=== PATIENT | female | born 1970 | race Two or more races ===

== ENCOUNTER 2024-11-21 10:23 | Emergency (ER) | payer MEDICAID, OTHER ==
[~2024-11-21] VITALS: Ht 175.3 cm; Wt 8.9 kg
--- NOTE | 2024-11-21 11:03 | ED.PDOC ---
History of Present Illness(SKN HPI Comments HPI: 54 y/o F, with no prior medical history presents to the ED for CC of wound check. Patient states, she has a chronic non-healing right ankle wound [id number] that has recently become inflamed, discolored, and is draining purulent fluid x5days. Patient reports, that she did receive antibiotic medications [id number] ago when wound first appeared then received another dosage [id number] later however, wound has yet to heal. Patient relays, using topical Abx to try and alleviate symptoms however, denies any relief. Patient has noted discoloration and inflammation to her right ankle. Patient denies pain with ambulation, fever, chills, weakness, nausea, or vomiting. No other symptoms or modifying factors are present at this time. Initial Vitals BP: HR: RR: O2 Sat: Temp: Past Medical history: DENIES ANY Past Surgical history: TUBAL LIGATION Medications: DENIES ANY Social History: Denies smoking, ETOH, and drug use. Allergies: NKDA Fam Right above medial malleoli chronic wound/pain HPI: Poor Historian. REVIEW OF SYSTEMS: CONSTITUTIONAL: Denies acute: fever, diaphoresis, chills, generalized weakness. HEAD: Denies acute: headache, photophobia Eyes: Denies acute: Double vision, vision loss, eye pain, eye discharge. EARS: Denies acute: tinnitus, hearing loss, ear discharge, ear pain, THROAT: Denies acute: sore throat, swelling, difficulty swallowing , pain with swallowing, change in voice. NECK: Denies acute: neck pain, neck swelling, stiff neck. HEART: Denies acute : chest pain, palpitations, LUNGS: Denies acute: SOB, wheezing, cough, hemoptysis ABDOMEN: Denies acute: abdominal pain, Nausea, Vomiting, diarrhea, melena , hematemesis, hematochezia SKIN: Denies acute: rash, redness, lesions, itchiness. EXTREMITIES: Denies acute: calf pain, numbness, tingling, weakness, denies pain in extremity. Denies acute: Low back pain. Neuro: Denies acute: focal neurological deficit, motor or sensory focal neurological d eficit, tremors, seizure like activity, confusion, dizziness, change in mental status, loss of bowel or bladder function, cauda equina like symptoms. : Denies acute: dysuria, hematuria, flank pain, increase in urinary frequency. PSYCH: Denies acute: hallucination, suicidal ideation, homicidal ideation. FEMALE: Denies acute: abnormal vaginal bleeding, foul odor, unusual discharge. PHYSICAL EXAM: General: --------acute distress, awake and alert. Head: normocephalic, atraumatic. Neck: supple, trachea is midline, no swelling. Throat: Normal phonation. Eyes:, no erythema, no purulent discharge, no proptosis, no icterus. Heart: regular rate, regular rhythm, no significant murmur appreciated. Lungs: no apparent respiratory distress, Able to speak in full sentences. No wheezing, no rhonchi, no crackles. No stridors Clear to auscultation bilaterally. Abdomen: non tender to palpation, non distended, soft, no guarding, no rebound, + bowel sounds. Neuro: Awake, Alert, oriented to name, self, situation, follows commands GCS=15. Speech is normal. Skin: no petechia, no purpura, no cyanosis, non-pale, not jaundice. Evaluation of the affected right lower extremity: No deformity, no calf tenderness to palpation, patient is neurovascularly intact in the affected extremity. Pedal pulses palpable. Sensory and motor are present. Noted pitting edema 2/4. Noted wound with some ulceration proximally 5 cm in diameter. Some slight tenderness to palpation with the associated erythema around the wound. Makes eye contact. moves all four extremities. Face: no apparent facial droop. Ambulating in the ED independently. Pedal pulses are palpable. ED COURSE: DISCLAIMER: This medical document was created using an electronic medical record system with voice recognition software and computerized dictation system. Although this document has been carefully reviewed, there might still be some phonetic and typographical errors. Occasional wrong-word or "sound-alike" substitutions may have occurred due to the inherent limitations of voice recognition software. The se areas are purely typographical due to imperfections of the software programs and do not reflect any compromise in the patient's medical care. Please read the chart carefully and recognize, using context, where these substitutions have occurred. Chief Complaint: Wound Check Time Seen by MD: 11:00 History of Present Illness: Nurses Notes, Medications, Allergies Allergies: Coded Allergies: NO KNOWN ALLERGIES (Unverified , 11/21/24) Home Meds Active Scripts Clindamycin Hcl (Clindamycin Hcl) 300 Mg Cap, 1 CAP PO TID for 7 Days, #21 CAP Prov:BHUMI HOFF DO 11/21/24 Information Source: Patient Mode of Arrival: Ambulatory Severity: Moderate Timing: Months Duration: Since onset Location: Other (right ankle) Mechanism: Spontaneous Onset Developed: Generalized erythema, Pruritus Object: None Condition of Object: None Wound Type: Abrasion Immunization Status of Animal: NA Tetanus: Unknown History of: None Associated Signs and Symptoms: Redness, Pus Was a procedure done? Was a procedure done?: No Differential Diagnosis (INTG) Differential Diagnosis: Abrasion, Cellulitis, Contusion, Fracture, Hematoma Differential Diagnosis: Gangrene, Osteomyelitis Differential Diagnosis: Cellulitis, Fracture, Hematoma, Neurovascular Injury Abscess: Abscess, Bacteremia, Gas Gangrene Differential Diagnosis: Open Fracture, Osteomyelitis X-Ray, Labs, Meds, VS Vital Signs Date Time Temp Pulse Resp B/P (MAP) Pulse Ox O2 Delivery O2 Flow Rate FiO2 11/21/24 15:52 98.7 53 16 149/69 (95) 100 98.7 11/21/24 14:01 98.7 54 17 156/68 (97) 100 98.7 11/21/24 14:01 54 17 100 Room Air 11/21/24 12:32 57 18 164/85 (111) 98 11/21/24 10:24 97.5 84 18 148/80 97 97.5 Lab Test 11/21/24 11:02 Range/Units White Blood Count 7.2 4.4-10.8 10^3/uL Red Blood Count 4.32 4.0-5.20 10^6/uL Hemoglobin 12.2 12.2-16.2 g/dL Hematocrit 36.4 36.0-46.0 % Mean Corpuscular Volume 84.4 80.0-100.0 fL Mean Corpuscular Hemoglobin 28.2 28.0-32.0 pg Mean Corpuscular Hemoglobin Concent 33.3 32.0-36.0 g/dL Red Cell Distribution Width 14.8 H 11.8-14.3 % Platelet Count 264 140-450 10^3/uL Mean Platelet Volume 8.3 6.9-10.8 fL Neutrophils (%) (Auto) 59.3 37.0-80.0 % Lymphocytes (%) (Auto) 30.8 10.0-50.0 % Monocytes (%) (Auto) 6.7 0.0-12.0 % Eosinophils (%) (Auto) 2.9 0.0-7.0 % Basophils (%) (Auto) 0.3 0.0-2.0 % Neutrophils # (Auto) 4.3 1.6-8.6 10 ^3/uL Lymphocytes # (Auto) 2.2 0.4-5.4 10 ^3/uL Monocytes # (Auto) 0.5 0-1.3 10 ^3/uL Eosinophils # (Auto) 0.2 0-0.8 10 ^3/uL Basophils # (Auto) 0 0-0.2 10 ^3/uL Nucleated Red Blood Cells 0.0 % Erythrocyte Sedimentation Rate 36 H 0-20 mm/hr Sodium Level 139 136-145 mmol/L Potassium Level 3.9 3.5-5.1 mmol/L Chloride Level 106 98-107 mmol/L Carbon Dioxide Level 26 20-31 mmol/L Anion Gap 7 5-15 Blood Urea Nitrogen 7 L 9-23 mg/dL Creatinine 0.54 L 0.550-1.02 mg/dL Glomerular Filtration Rate Calc 110 >90 mL/min BUN/Creatinine Ratio 13.0 10.0-20.0 Serum Glucose 111 H 74-106 mg/dL Lactic Acid Level 1.6 0.4-2.0 mmol/L Calcium Level 9.2 8.7-10.4 mg/dL C-Reactive Protein High Sensitivity 1.67 H <1.0 mg/dL [place] [address] Ph: [phone] DIAGNOSTIC IMAGING Diagnostic Imaging Report : [id number] Signed PATIENT: BENOIT FAMACCT: [id number] UNIT: [id number] : 1970 LOC: ER ROOM / BED: / AGE / SEX: 54 / F ADM STATUS: REG ER SERVICE 1325 ORDERING PHYSICIAN: BHUMI HOFF DO PROCEDURE(s): RLDVT - RT Lower DVT REASON: pain ORDER NUMBER(s): [id number], ACCESSION NUMBER(s): [id number] RIGHT LOWER EXTREMITY VENOUS DUPLEX REASON FOR EXAMINATION: Right lower extremity pain and edema. COMPARISON: None TECHNIQUE: Using real-time freeze-frame technique with a high-frequency transducer, multiple longitudinal and transverse sections were obtained. Simultaneous color flow and spectral Doppler imaging was performed. FINDINGS: There is good visualization of the deep venous system with no intraluminal filling defects identified. Normal venous compressibility is seen and there is flow augmentation. Color flow Doppler imaging is unremarkable. There is a Lutz's cyst in the right popliteal fossa measuring approximately 2.9 x 1.1 x 2.7 cm. IMPRESSION: NO EVIDENCE OF DEEP VENOUS THROMBOSIS. ATED BY: PAL FIERRO MD DICTATED DATE/TIME: 11/21/241404 SIGNED BY: PAL FIERRO MD SIGNED DATE/TIME: 11/21/241404 CC: Time of 1ST Reevaluation: 11:30 Reevaluation 1ST: Unchanged Patient Education/Counseling: Diagnosis, Treatment Family Education/Counseling: No Family Present Comments MDM: patient presented with the above HPI.--foot infection----workup was initiated. patient was found with the above mentioned diagnosis. the following medications were ordered: please refer to order lists of meds and tests obtained by myself Dr. Hoff. Patient ED course and VS have been stabilized. Patient has been reassessed in the ED and remained in a stable condition. Pertinent incidental findings were discussed with the patient and/or family. Patient/family voices understanding and is agreeable with plan. Patient has been observed in the ED adequate length of time to insure improvement/stability. Escalation of care considered: Consideration of escalation to observation or admission Antibiotics initiated. Patient was ADMITTED to the medicine team for further evaluation and treatment of their presentation. All the reports of any imaging studies that were ordered by myself were reviewed by myself. SEPSIS Sepsis Screen Date sepsis recognized/suspect: Nov 21, 2024 Time Sepsis recognized/suspect: 1024 Recent Procedure: No On Antibiotic Therapy: No Respiratory Rate >20: No Heart Rate >90: No Temp<36 C (96.8 F) or >38.3 C: No SBP <90 or MAP <65 mmHG: No New Acute Mental Status Change: No Is the patient on CPAP, BIPAP,: No Physician Orders Rt Lower Dvt (11/21/24 13:25) Vital Signs Date Time Temp Pulse Resp B/P (MAP) Pulse Ox O2 Delivery O2 Flow Rate FiO2 11/21/24 15:52 98.7 53 16 149/69 (95) 100 98.7 11/21/24 14:01 98.7 54 17 156/68 (97) 100 98.7 11/21/24 14:01 54 17 100 Room Air 11/21/24 12:32 57 18 164/85 (111) 98 11/21/24 10:24 97.5 84 18 148/80 97 97.5 Laboratory Tests Test 11/21/24 11:02 Lactic Acid Level 1.6 mmol/L (0.4-2.0) White Blood Count 7.2 10^3/uL (4.4-10.8) Departure 1 Departure Time of Disposition: 13:24 Impression: Primary Impression: Cellulitis of right ankle Disposition: 01 HOME / SELF CARE / HOMELESS Condition: Stable Additional Instructions: Additional instructions: Please read all instructions provided in this packet carefully. You MUST follow-up with your primary care/family doctor in 1 to 2 days. If you are unable to see your primary care/family doctor, please return to our emergency room for re-assessment and re-evaluation in 1 to 2 days. Return to the emergency room here in our facility or to the nearest ER [facility] if your symptoms change or worsen. Adequate fluid hydration. Although you have been discharged from the Emergency Department, this does not mean that you have a "clean bill of health". No definitive diagnosis for your s ymptoms has been made today. It is possible that you are in the process of developing a serious illness. This is why you must return to the ED without fail if any new or worsening symptoms develop. Below is a copy of your radiological report for follow up: [address] [address] Ph: [phone] DIAGNOSTIC IMAGING Diagnostic Imaging Report : [id number] Signed PATIENT: BENOIT FAM ACCT: [id number] UNIT: [id number] : 1970 LOC: ER ROOM / BED: / AGE / SEX: 54 / F ADM STATUS: REG ER SERVICE 1325 ORDERING PHYSICIAN: BHUMI HOFF DO PROCEDURE(s): RLDVT - RT Lower DVT REASON: pain ORDER NUMBER(s): [id number], ACCESSION NUMBER(s): [id number] RIGHT LOWER EXTREMITY VENOUS DUPLEX REASON FOR EXAMINATION: Right lower extremity pain and edema. COMPARISON: None TECHNIQUE: Using real-time freeze-frame technique with a high-frequency transducer, multiple longitudinal and transverse sections were obtained. Simultaneous color flow and spectral Doppler imaging was performed. FINDINGS: There is good visualization of the deep venous system with no intraluminal filling defects identified. Normal venous compressibility is seen and there is flow augmentation. Color flow Doppler imaging is unremarkable. There is a Lutz's cyst in the right popliteal fossa measuring approximately 2.9 x 1.1 x 2.7 cm. IMPRESSION: NO EVIDENCE OF DEEP VENOUS THROMBOSIS. ATED BY: PAL FIERRO MD DICTATED DATE/TIME: 11/21/24 1405 SIGNED BY: PAL FIERRO MD SIGNED DATE/TIME: 11/21/24 1405 CC: e-Prescriptions Clindamycin Hcl (Clindamycin Hcl) 300 Mg Cap 1 CAP PO TID for 7 Days, #21 CAP Prov: BHUMI HOFF DO 11/21/24 Discharged With: Self Critical Care Note Critical Care Time?: No I personally scribed for BHUMI HOFF DO ([email or web address]) on 11/21/24 at 11:03. Electronically submitted by Skylar Anguiano ([email or web address]). I personally scribed for BHUMI HOFF DO ([email or web address]) on 11/21/24 at 11:20. Electronically submitted by Skylar Anguiano ([email or web address]). I personally scribed for BHUMI HOFF DO ([email or web address]) on 11/21/24 at 11:29. Electronically submitted by Skylar Anguiano ([email or web address]). I personally scribed for BHUMI HOFF DO ([email or web address]) on 11/21/24 at 14:25. Electronically submitted by Skylar Anguiano ([email or web address]). BHUMI HOFF DO Nov 21, 2024 11:03
[2024-11-21 11:26] LABS: Chloride 106 mmol/L (98-107); Potassium 3.9 mmol/L (3.5-5.1); Sodium 139 mmol/L (136-145)
[2024-11-21 11:27] LABS: Anion Gap 7 (5-15); Calcium 9.2 mg/dL (8.7-10.4); Carbon Dioxide 26 mmol/L (20-31)
[2024-11-21 11:29] LABS: Hematocrit 36.4 % (36.0-46.0); Hemoglobin 12.2 g/dL (12.2-16.2); Mean Corpuscular Hemoglobin 28.2 pg (28.0-32.0); Mean Corpuscular Volume 84.4 fL (80.0-100.0); Nucleated Red Blood Cells % 0.0 %
[2024-11-21 11:32] LABS: BUN/Creatinine Ratio 13.0 (10.0-20.0)
[2024-11-21 11:33] LABS: Blood Urea Nitrogen 7 mg/dL (9-23); Glucose 111 mg/dL (74-106)
--- NOTE | 2024-11-21 14:07 | DVH ---
RIGHT LOWER EXTREMITY VENOUS DUPLEX REASON FOR EXAMINATION: Right lower extremity pain and edema. COMPARISON: None TECHNIQUE: Using real-time freeze-frame technique with a high-frequency transducer, multiple longitu dinal and transverse sections were obtained. Simultaneous color flow and spectral Doppler imaging wa s performed. FINDINGS: There is good visualization of the deep venous system with no intraluminal filling defects identified. Normal venous compressibility is seen and there is flow augmentation. Color flow Doppler imaging is unremarkable. There is a Lutz's cyst in the right popliteal fossa measuring approximately 2.9 x 1.1 x 2.7 cm. IMPRESSION: NO EVIDENCE OF DEEP VENOUS THROMBOSIS.
[2024-11-21] MEDS: CLINDAMYCIN 900MG IV 50 ML IV ONE (14:19)
[2024-11-21] MEDS ORDERED: CLIN1CAP70 PO (14:30)
[2024-11-21 15:52] VITALS: BP 149/69; PULSE 53; RESP 16; TEMP 98.7; O2SAT 100
== END 2024-11-21 15:54 | disposition home or self-care (01) ==
LOC: ER 10:23
DX: L03.115 Cellulitis of right lower limb (principal); Z98.51 Tubal ligation status; Z79.899 Other long term (current) drug therapy
CPT/HCPCS: 36415; 80048; 83605; 85025; 85652; 86141; 93971; 96365; 96366; 99285; J3490

== ENCOUNTER 2024-11-30 07:57 | Day surgery (SDC) | payer MEDICAID ==
[2024-11-28 10:32] LABS: Hematocrit 37.3 % (36.0-46.0); Hemoglobin 12.7 g/dL (12.2-16.2); Mean Corpuscular Hemoglobin 28.8 pg (28.0-32.0); Mean Corpuscular Volume 84.7 fL (80.0-100.0); Nucleated Red Blood Cells % 0.1 %
[2024-11-28 10:41] LABS: Urine Protein, UAD Negative (Negative)
[2024-11-28 10:47] LABS: INR 0.96 (0.9-1.15); Partial Thromboplastin Time 30.8 SEC (24.5-34.5); Prothrombin Time 10.2 sec (9.3-11.8)
[2024-11-28 11:20] LABS: Alanine Aminotransferase 36 U/L (7-40); Albumin 4.5 g/dL (3.2-4.8); Alkaline Phosphatase 102 U/L (46-116); Anion Gap 9 (5-15); BUN/Creatinine Ratio 15.0 (10.0-20.0); Calcium 9.1 mg/dL (8.7-10.4); Carbon Dioxide 28 mmol/L (20-31); Chloride 106 mmol/L (98-107); Potassium 4.2 mmol/L (3.5-5.1); Sodium 143 mmol/L (136-145); Total Protein 7.6 g/dL (5.7-8.2)
[2024-11-28 11:21] LABS: Bilirubin, Total 0.3 mg/dL (0.2-1.0)
[2024-11-28 11:34] LABS: Blood Urea Nitrogen 9 mg/dL (9-23); Glucose 117 mg/dL (74-106)
[~2024-11-30] VITALS: Ht 144.8 cm; Wt 86.2 kg
[2024-11-30] MEDS ORDERED: fentaNYL CITRATE 100 MCG/2 ML VL ONE (08:46)
[2024-11-30] MEDS ORDERED: PROPOFOL 10 MG/ML 20 ML IV ONE (08:47)
[2024-11-30 09:02] VITALS: PULSE 54; RESP 14; TEMP 97.4; O2SAT 95
--- NOTE | 2024-11-30 09:02 | DVHHP2 ---
GI H&P Pre-Op Assessment Date: 11/30/24 Chief complaint: colon cancer screening HPI: per clinic note Past medical history: per clinic note Past surgical history: per clinic note Family history: per clinic note Physical exam: General: NAD, AAOX3 HEENT: PERRL, no scleral icterus, normal hearing, gums without lesions or bleeding, oropharynx clear without erythema or exudate. Neck: Supple without enlargement of the thyroid, or lymphadenopathy. Chest: Normal size and shape, no tenderness, lung [place] clear to auscultation and percussion, nonlabored breathing. Heart: RRR, no murmur Abdomen: non-distended, no tenderness to palpation, +BS, no hepatosplenomegaly Extremities: no edema Neurological: CN II-XII intact, sensation intact in all extremities, 5+ strength in all extremities Skin: No rashes, No jaundice Assessment: - colon cancer screening Plan: - Colonoscopy - Risks (bleeding, infection, perforation, reaction to sedation medications and cardiopulmonary arrest) and benefit of the procedure were explained to patient. Patient agrees to undergo the procedure. CECILE ARANGO MD Nov 30, 2024 09:02
--- NOTE | 2024-11-30 09:03 | DVHOP2 ---
Operative Report DATE OF OPERATION: 11/30/24 PROCEDURE: Colonoscopy. PREOPERATIVE INDICATION: The patient is a 54 -year-old female undergoing colonoscopy for colon cancer screening. POSTOPERATIVE DIAGNOSES: 1. Normal colonoscopy PROCEDURE PERFORMED BY: Gumaro Asencio M.D. SCOPE: Olympus videocolonoscope. ASA CLASS: 3 PREOPERATIVE MEDICATIONS: MAC with Dr Yeung PROCEDURE IN DETAIL: After obtaining an informed consent, the patient was placed on left lateral decubitus position. She was then sedated with the above medications. A rectal examination was performed that was normal. The col onoscope was then passed through the anus into the rectosigmoid and through the descending, transverse, and ascending colon up to the cecum with visualization of the appendiceal orifice, base of the cecum and the ileocecal valve. No mass or polyp was observed. The colonoscope was then withdrawn. The patient tolerated the procedure well without difficulty. WITHDRAWAL TIME: 6 minutes QUALITY OF THE PREP: [place] Bowel Prep score: 6 COMPLICATIONS : None SPECIMENS: None DISPOSITION: D/C to home PLAN: 1. Repeat colonoscopy in 10 years for colon cancer screening. GUMARO ASENCIO MD Nov 30, 2024 09:03
--- NOTE | 2024-11-30 09:03 | DVHDS2 ---
Physician Discharge Progress N Final Diagnosis: Normal colonoscopy Operations or Procedures: Operations or Procedures Colonoscopy Condition on Discharge: Good Disposition: Home Discharge Instructions: Diet: Regular Activity: No Restrictions, As Tolerated Medications: Resume previous home medications Follow Up Care: Discharge Statement: "Patient was advised to return to the ER or call 911 if any headaches, dizziness, shortness of breath, chest pain, abdominal pain, bleeding, fevers, or worsening of medical condition. Patient was counseled about treatment plan, medications, possible side effects, patientverbalized understanding. All questions were answered to the best of my ability. This discharge took greater then 30 minutes in planning, reviewing documentation, counseling the patient, and discussing with other team members." CECILE ARANGO MD Nov 30, 2024 09:03
[2024-11-30 09:32] VITALS: BP 129/69; PULSE 54; RESP 16; O2SAT 97
== END 2024-11-30 09:42 | disposition home or self-care (01) ==
LOC: GI 07:57
PROVIDERS: ATTEND Internal Medicine Gastroenterology
DX: Z12.11 Encounter for screening for malignant neoplasm of colon (principal); E66.9 Obesity, unspecified; Z68.38 Body mass index [BMI] 38.0-38.9, adult
CPT/HCPCS: 36415; 45378; 80053; 81001; 85025; 85610; 85730; J2704; J3010